=== PATIENT | female | born 1945 | race Caucasian/White ===

== ENCOUNTER → 2016-12-31 | Outpatient (CLI) | payer MEDICARE, OTHER ==
[~2016-12-31] MED LIST: ASPI-558 PO; ATOR40TA PO; CALC-586 PO; DEXT30SU4 PO; FENO134C PO; FLUT16SP EA NOSTRIL; INSU100I4 SQ; INSU100I5 SQ; ISOS20TA56 PO; METF-200 PO; METO25TA41 PO; MULT-806 PO; NITR0.4T38 SL; OMEP20TA11 PO
== END ==
LOC: WC.BC 10:53
DX: Z12.31 Encounter for screening mammogram for malignant neoplasm of breast (principal)
CPT/HCPCS: 77063; G0202